=== PATIENT | male | born 2000 | race Caucasian/White ===

== ENCOUNTER 2018-01-09 21:59 | Emergency (ER) | payer MEDICAID ==
[2018-01-09 22:05] VITALS: BP 135/78
--- NOTE | 2018-01-09 22:32 | EDPHY ---
H & P Stated Complaint: Right knee pain, fell off skateboard at 1300 today Time Seen by Provider: 01/09/18 22:30 HPI/ROS: HPI: This is a 17-year-old male who presents with Chief Complaint: Right knee pain, fell off skateboard at 1300 today Location: Right knee Quality: Injury Duration: Since this afternoon Signs and Symptoms: No bleeding, no radiation, no numbness, no weakness, no tingling, no incontinence, no decreased range of motion, + swelling, + pain, no fever Timing: Acute Severity: Moderate Context: Patient was skateboarding this morning when he fell off the skateboard and both of his knees bent backwards. He reports that he felt immediate constant pain in the medial portion of his right knee. Pain is worsened with movement and weight-bearing. He has noted increased swelling over the last several hours. Denies radiation, weakness, paresthesias. Modifying Factors: No [id number] medications taken Comment: ROS: A comprehensive 10 system review of systems is otherwise negative aside from elements mentioned in the history of present illness. MEDICAL/SURGICAL/SOCIAL HISTORY: Medical history: Generally healthy. Does not take any regular medications. Surgical history: Denies Social history: Never smoked. CONSTITUTIONAL: Well-developed, well-nourished, teenage male, awake and alert, no obvious distress HEENT: Atraumatic and normocephalic. NECK: supple EXTREMITIES: 2/2 pulses, strength 5/5, right KNEE: Mild effusion, mild medial joint line tenderness; no lateral joint line tenderness, full extension to 180 , flexion to 90. Moderate pain with valgus exam. No pain with varus exam. No pain with anterior drawer or posterior drawer test. Extensor mechanism intact. DIP/PIP/MCP flexion/extension intact with good light touch sensation. no deformities, no clubbing, no cyanosis or edema. NEUROLOGICAL: no focal neuro deficits. GCS 15. Light touch sensation intact. SKIN: Warm and dry, no erythema. no rash. Good capillary refill. Source: Patient Exam Limitations: No limitations - Personal History Current Tetanus Diphtheria and Acellular Pertussis (TDAP): Yes - Medical/Surgical History Hx Asthma: No Hx Chronic Respiratory Disease: No Hx Diabetes: No Hx Cardiac Disease: No Hx Renal Disease: No Hx Cirrhosis: No Hx Alcoholism: No Hx HIV/AIDS: No Hx Splenectomy or Spleen Trauma: No Other PMH: denies - Social History Smoking Status: Never smoked Constitutional: Initial Vital Signs Temperature (C) 37 C 01/09/18 22:03 Heart Rate 84 01/09/18 22:03 Respiratory Rate 16 01/09/18 22:03 Blood Pressure 135/78 H 01/09/18 22:03 O2 Sat (%) 96 01/09/18 22:03 O2 Delivery Mode Room Air Allergies/Adverse Reactions: No Known Allergies Allergy (Unverified 01/09/18 22:02) Home Medications: Medication Instructions Recorded NK [No Known Home Meds] 01/09/18 Medical Decision Making - Diagnostics Imaging Results: Imaging Impressions Knee X-Ray 01/09/18 22:29 Impression: 1. No definite fracture of the right knee. 2. Soft tissue swelling and questionable joint effusion. Procedures: Procedure: Splint placement. A right knee immobilizer was applied. After application of the splint I returned and re-examined the patient. The splint was adequately immobilizing the joint and distal to the splint the patient's circulation and sensation was intact. ED Course/Re-evaluation: Vital signs reviewed and stable upon arrival. Ice pack applied Right knee x-ray my read shows mild effusion, no fracture, no dislocation Suspect internal derangement of MCL verses medial meniscus injury Placed in knee immobilizer with orthopedic follow-up as needed No signs of neurovascular compromise/tenting of skin/compartment syndrome/ extremities and joints examined above and below area of concern and are neurovascularly intact. This patient was seen under the supervision of my secondary supervising physician. I evaluated care for this patient independently. Discussed this patient with Dr. Leo. Differential Diagnosis: Knee injury while [] including but not limited to fracture, ACL injury, contusion, muscular strain, and meniscus injury. Departure - Departure Disposition: Home, Routine, Self-Care Clinical Impression: Medial collateral ligament sprain of knee Qualifiers: Encounter type: initial encounter Laterality: right Qualified Code(s): S83.411A - Sprain of medial collateral ligament of right knee, initial encounter Condition: Good Instructions: Knee Sprain (ED), Knee Immobilizer (ED) Additional Instructions: Wear the knee brace while out of bed until pain free. Take Tylenol 650 mg every 4 hours and/or Ibuprofen 600 mg every 8 hours with food as needed for pain. Apply ice for 30 minutes at a time; 2-3 times per day for the next 1-2 days. Follow up with Orthopedics in 7-10 days symptoms persist at which time they will evaluate and recommend with you if conservative management versus further imaging like MRI is indicated. The x-rays obtained in the emergency department today demonstrate no evidence of an obvious fracture. Sometimes fractures are not obvious on the initial set of x-rays performed in the ED. For this reason, you should have repeat x-rays performed in 7-10 days if you are having any pain exclude the possibility of an occult fracture. Referrals: Silva Monique MD [Medical Doctor] - As per Instructions
== END 2018-01-09 23:36 | disposition home or self-care (01) ==
DX: S83.411A Sprain of medial collateral ligament of right knee, initial encounter (principal); V00.131A Fall from skateboard, initial encounter; Y93.51 Activity, roller skating (inline) and skateboarding
CPT/HCPCS: L1830